=== PATIENT | male | born 1940 | race Caucasian/White ===

== ENCOUNTER → 2018-12-12 08:36 | Outpatient (CLI) | payer OTHER ==
--- NOTE | 2018-12-12 15:34 | EC ---
PATIENT:JEREL VALDES SR DATE OF SERVICE: 12/12/18 SEX: M MEDICAL RECORD: [id number] DATE OF : 36 LOCATION:[facility] AGE OF PATIENT: 78 ADMISSION DATE: 12/12/18 REFERRING PHYSICIAN: INTERPRETING PHYSICIAN: AMANDA BUTLER MD ECHOCARDIOGRAM REPORT ECHO CHARGES 4 ECHO COMPLETE Date: 12/12/18 CLINICAL DIAGNOSIS: CAD ECHOCARDIOGRAPHIC MEASUREMENTS (adult normal given) AC root (d.<3.7cm) 3.6 cm LV Septum d (<1.2 cm> 1.6 cm Valve Excursion 2.2 cm LV Septum (systole) 2.1 cm Left Atria (s.<4.0cm> 3.4 cm LVPW d(<1.2cm) 1.4 cm RV (d.<2.3cm) 2.6 cm LVPW (sytole) 2.0 cm LV diastole(<5.6CM) 4.5 cm MV E-F(>70mm/sec) cm LV systole 2.6 cm LVOT Diameter 1.9 cm MV exc.(>10mm) cm Est.ejection fraction (50-75%) % DOPPLER: LVIT cm/sec A 111 cm/sec E 74.0 cm/sec LA cm/sec RVSP 37.0 mmHg LVOT 114 cm/sec AOP1/2T m/s Asc. 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 Butler TAPE# PACS Pericardial Effusion N DATE OF SERVICE: FINDINGS: 1. Left ventricular chamber size is within normal limits. Left ventricular systolic function is normal at 55%. 2. Left atrium is within normal limits at 3.4 cm. Right atrium and right ventricular chamber sizes are mildly dilated. 3. Valvular structures have normal structure and motion. 4. Doppler interrogation reveals trace mitral regurgitation, mild to moderate tricuspid regurgitation, no other valvular insufficiency or stenosis. Pulmonary ECHOCARDIOGRAM REPORT [id number] JEREL VALDES SR systolic pressure is normal estimated 37 mmHg. 5. No evidence of pericardial effusion or left ventricular thrombus. TRANSINT:[id number] Voice Confirmation ID: [id number] DOCUMENT ID: [id number] AMANDA BUTLER MD at 1534 CC: [id number] DICTATION DATE: 12/12/18 1134 [employer] COORDINATOR: 12/12/18 1249 REG [facility] [address] [place] [address]
== END | disposition home or self-care (01) ==
LOC: D.ECHO 08:36
DX: I25.10 Atherosclerotic heart disease of native coronary artery without angina pectoris (principal)

== ENCOUNTER → 2019-01-08 09:07 | Outpatient (CLI) | payer OTHER | END | disposition home or self-care (01) | LOC: D.CN 12-08 10:30 → D.ECHO 12-12 09:35 → D.CN 09:07 | PROVIDERS: ATTEND Orthopaedic Surgery | DX: I25.10 Atherosclerotic heart disease of native coronary artery without angina pectoris (principal) ==